=== PATIENT | female | born 1985 ===

== ENCOUNTER 2018-03-28 12:28 | Inpatient (IN) | payer OTHER ==
--- NOTE | 2018-03-28 14:42 | HP ---
General Information - General Information Maternal Age: 32 Grav: 2 Para: 1 SAB: 0 IEA: 0 Estimated Due Date: 04/06/18 Determined By: LMP Gestational Age in Weeks/Days: 38 5/7 weeks Maternal Blood Type and Rh: O Positive - Results this Serology/RPR Result: Non-Reactive Rubella Result: Immune HBsAg Result: Negative HIV Result: Negative GBS Culture Result: Negative Past Medical History Delivery History: Hx Uncomplicated Vaginal Delivery, See Records Pertinent Past Medical History: Non-Contributory Pertinent Past Surgical History: None Pertinent Family History: See Records - Antepartal Records Antepartal Records: Reviewed, Complicated by: - growth restriciton Review of Systems Constitutional: Comfortable CV Complaint: No Respiratory: Shortness of Breath: No Gastrointestinal: No Nausea/Vomiting, Normal Bowel Movement Genitourinary: No Dysuria, No Bleeding, No Leaking Fluid Musculoskeletal: No Complaint Neurological: No Headache Movement: Normal Exam Allergies/Adverse Reactions: Allergies No Known Allergies Allergy (Verified 03/28/18 13:41) - Measurements Height: 5 ft 3 in Weight: 134 lb Weight in lbs: 134.765044 Body Mass Index (BMI): 23.7 Pre- Weight: 117 lb Weight Gained This : 17 lbs and 0 ozs - Abdominal Exam Abdomen Exam: Non-Tender - Ultrasound/Biophysical Profile Ultrasound Findings: done on 03/28/18: increased S/D ratio EFW : 5#14 oz Biophysical Profile: Normal Amniotic Fluid, Normal Gross Body Movements, Normal Muscle Tone, Normal Breathing, Normal Reactive NST Biophysical Profile - Points Available: 10 Points Targeted Exam Findings See L&D Outpatient Visit Provider Note for Findings: Yes Cervical Exam: 3cm Effacement: 80% Station: -1 Presenting Part: Vertex Membrane Status: Intact Bleeding/Discharge: None EFM Findings - External Monitor Findings Baseline Heart Rate: 140 External Monitor Findings: Accelerations Present, Variability Moderate Contractions: None Assessment/Plan - Obstetrical Risk Factors Obstetrical Risk Factors: IUGR - Plan Plan: Induction - Date/Time of Admission Date of Admission: 03/28/18 Time of Admission: 14:45
[2018-03-28] MEDS ORDERED: Oxytocin in LR* 20 UNITS/1,000 ML BAG IVPB SCH ×2 (15:00→22:00)
[2018-03-28 15:23] LABS: ABS Basophils 0 10^3/ul (0-0.2); ABS Eosinophils 0.3 10^3/ul (0-0.6); ABS Lymphocytes 2.9 10^3/ul (1.0-4.8); ABS Monocytes 1.4 10^3/ul (0-0.8); ABS Nucleated RBC 0 10^3/ul; Eosinophil % 1.9 % (0-6); Hematocrit 38 % (35-47); Hemoglobin 12.7 g/dl (12.0-16.0); Lymphocyte % 21.2 % (25-47); Mean Corpuscular HGB Conc 34 g/dl (31-36); Mean Corpuscular Hemoglobin 30 pg (27-31); Mean Corpuscular Volume 90 fL (80-97); Mean Platelet Volume 8.2 um3 (7.4-10.4); Nucleated Red Blood Cells % 0.1; Platelet Count 280 10^3/ul (150-450); Red Blood Count 4.24 10^6/ul (4.00-5.40); Red Cell Distribution Width 13 % (10.5-15); White Blood Count 13.5 10^3/ul (3.5-10.8)
[2018-03-28] MEDS ORDERED: Dibucaine 1% 28.35 GM TUBE PR PRN (21:03)
[2018-03-28] MEDS ORDERED: Witch Hazel PAD* JAR TOPICAL PRN (21:03)
[2018-03-28] MEDS ORDERED: Glycerin ADULT SUPP PR PRN (21:03)
[2018-03-28] MEDS ORDERED: Acetaminophen TAB* 325 MG PO PRN (21:03)
[2018-03-28] MEDS: Ibuprofen TAB* 600 MG PO PRN (22:35)
[2018-03-29 06:43] LABS: Hematocrit 34 % (35-47); Hemoglobin 11.7 g/dl (12.0-16.0); Mean Corpuscular HGB Conc 34 g/dl (31-36); Mean Corpuscular Hemoglobin 30 pg (27-31); Mean Corpuscular Volume 88 fL (80-97); Mean Platelet Volume 7.7 um3 (7.4-10.4); Platelet Count 223 10^3/ul (150-450); Red Blood Count 3.87 10^6/ul (4.00-5.40); Red Cell Distribution Width 13 % (10.5-15); White Blood Count 20.6 10^3/ul (3.5-10.8)
[2018-03-29] MEDS ORDERED: Simethicone TAB* 80 MG TAB.CHEW PO SCH (08:30)
[2018-03-29 08:43] LABS: ABS Basophils 0 10^3/ul (0-0.2); ABS Eosinophils 0.1 10^3/ul (0-0.6); ABS Lymphocytes 3.3 10^3/ul (1.0-4.8); ABS Neutrophils 15.1 10^3/ul (1.5-7.7); ABS Nucleated RBC 0 10^3/ul; Eosinophil % 0.6 % (0-6); Lymphocyte % 16.1 % (25-47); Nucleated Red Blood Cells % 0.1
[2018-03-29] MEDS ORDERED: Ferrous Gluconate TAB* 324 MG TAB PO SCH (09:00)
[2018-03-29] MEDS: Docusate CAP* 100 MG PO SCH ×3 (10:02→22:00)
[2018-03-29] MEDS: Ibuprofen TAB* 600 MG PO PRN ×2 (13:47→19:45)
[2018-03-29 20:19] VITALS: BP 119/72
[2018-03-30] MEDS: Ibuprofen TAB* 600 MG PO PRN ×2 (05:48→15:18)
[2018-03-30] MEDS: Docusate CAP* 100 MG PO SCH ×2 (08:20→15:19)
--- NOTE | 2018-03-30 15:54 | PTEDU ---
Patient Name: EZEQUIEL GASTELUM EZEQUIEL GASTELUM selected video: Never Ever Shake a Baby to view on 03/30/2018 at 3:54:16 PM from [id number]
== END 2018-03-30 18:15 | disposition home or self-care (01) | DRG 775 ==
LOC: MCHOBOUT 12:28 → MCHOB 14:41
PROVIDERS: ADMIT Obstetrics & Gynecology; ATTEND Obstetrics & Gynecology
PROC: 3E033VJ Introduction of Other Hormone into Peripheral Vein, Percutaneous Approach (ICD-10-PCS; principal; 2018-03-28)
PROC: 10E0XZZ Delivery of Products of Conception, External Approach (ICD-10-PCS; 2018-03-28)
PROC: 4A1HXCZ Monitoring of Products of Conception, Cardiac Rate, External Approach (ICD-10-PCS; 2018-03-28)
PROC: 10907ZC Drainage of Amniotic Fluid, Therapeutic from Products of Conception, Via Natural or Artificial Opening (ICD-10-PCS; 2018-03-28)
DX: O36.5930 Maternal care for other known or suspected poor fetal growth, third trimester, not applicable or unspecified (principal); Z37.0 Single live birth; Z3A.38 38 weeks gestation of pregnancy; O69.81X0 Labor and delivery complicated by cord around neck, without compression, not applicable or unspecified
CPT/HCPCS: 36415; 85025; 86850; 86900; 86901; 88307; A9270-GY